=== PATIENT | female | born 1995 | race Caucasian/White ===

== ENCOUNTER 2018-07-08 20:51 | Emergency (ER) | payer OTHER ==
[2018-07-08 21:04] VITALS: BP 128/81; PULSE 100; TEMP 98.2; BMI 28.7
--- NOTE | 2018-07-08 22:56 | PDOC ---
History of Present Illness - General Chief Complaint: Vaginal Bleeding Stated Complaint: 12 WEEKS ,BLEEDING Time Seen by Provider: 07/08/18 22:56 - History of Present Illness Initial Comments: 07/08/18 23:14 Ms. Galdamez is a 22 yo female at 12weeks and 2 days who presents for evaluation of bleeding in . Patient reports she was evaluated yesterday at [facility] w/ transabdominal sonogram which was completely normal however started to have vaginal bleeding following this. Patient says she saturated 1 liner and has had moderate bleeding today. Denies any other associated symptoms. The patient denies chest pain, shortness of breath, headache and dizziness. Denies fever, chills, nausea, vomit, diarrhea and constipation. Denies dysuria, frequency, urgency and hematuria. Past History - Past Medical History Allergies/Adverse Reactions: Allergies Allergy/AdvReac Type Severity Reaction Status Date / Time No Known Allergies Allergy Verified 07/08/18 21:00 Home Medications: Ambulatory Orders Nitrofurantoin Monohyd/M-Cryst [Macrobid -] 100 mg PO BID #14 capsule 07/09/18 COPD: No - Suicide/Smoking/Psychosocial Hx Smoking History: Never smoked Review of Systems - Review of Systems Comments:: 07/08/18 23:18 GENERAL/CONSTITUTIONAL: No fever or chills. No weakness. HEAD, EYES, EARS, NOSE AND THROAT: No change in vision. No ear pain or discharge. No sore throat. CARDIOVASCULAR: No chest pain or shortness of breath RESPIRATORY: No cough, wheezing, or hemoptysis. GASTROINTESTINAL: No nausea, vomiting, diarrhea or constipation. GENITOURINARY: No dysuria, frequency, or change in urination. MUSCULOSKELETAL: No joint or muscle swelling or pain. No neck or back pain. SKIN: No rash NEUROLOGIC: No headache, vertigo, loss of consciousness, or change in strength/ sensation. ENDOCRINE: No increased thirst. No abnormal weight change HEMATOLOGIC/LYMPHATIC: No anemia, easy bleeding, or history of blood clots. ALLERGIC/IMMUNOLOGIC: No hives or skin allergy. VAGINAL: Bleeding as described. *Physical Exam - Vital Signs Last Vital Signs Temp Pulse Resp BP Pulse Ox 98.2 F 100 H 20 128/81 100 07/08/18 21:01 07/08/18 21:01 07/08/18 21:01 07/08/18 21:01 07/08/18 21:01 - Physical Exam Comments: 07/08/18 23:19 GENERAL: Awake, alert, and fully oriented, in no acute distress HEAD: No signs of trauma, normocephalic, atraumatic EYES: PERRLA, EOMI, sclera anicteric, conjunctiva clear ENT: Auricles normal inspection, hearing grossly normal, nares patent, oropharynx clear without exudates. Moist mucosa NECK: Normal ROM, supple, no lymphadenopathy, JVD, or masses LUNGS: No distress, speaks full sentences, clear to auscultation bilaterally HEART: Regular rate and rhythm, normal S1 and S2, no murmurs, rubs or gallops, peripheral pulses normal and equal bilaterally. ABDOMEN: Soft, nontender, normoactive bowel sounds. No guarding, no rebound. No masses EXTREMITIES: Normal inspection, Normal range of motion, no edema. No clubbing or cyanosis. NEUROLOGICAL: Cranial nerves II through XII grossly intact. Normal speech, normal gait, no focal sensorimotor deficits SKIN: Warm, Dry, normal turgor, no rashes or lesions noted. VAGINAL: Os closed. Dried blood notable only. No CMT, no TTP. ED Treatment Course - LABORATORY CBC & Chemistry Diagram: 07/08/18 23:10 Medical Decision Making - Medical Decision Making 07/08/18 23:33 Ms. Galdamez is a 22 yo female w/ pmh as described who presents for evaluation of painless vaginal bleeding. Patient evaluated with labs as below as well as bedside sonogram. FHR 178 w/ good movement. Vaginal exam non- concerning. Patient H/H stable and blood type Rh+ necessitating no rhogam. Patient safe for outpatient f/u Tuesday. Discharging to home. Laboratory Results - last 24 hr 07/08/18 07/08/18 07/08/18 23:10 23:10 23:10 WBC 7.2 RBC 4.37 Hgb 13.5 Hct 39.6 MCV 90.6 MCH 30.9 MCHC 34.1 RDW 13.1 Plt Count 174 MPV 8.7 Absolute Neuts (auto) 4.7 Neutrophils % 65.9 Lymphocytes % 26.4 Monocytes % 6.2 Eosinophils % 1.2 Basophils % 0.3 Nucleated RBC % 0 Beta HCG, Quant 34216.5 Urine Color Urine Appearance Urine pH Ur Specific [place] Urine Protein Urine Glucose (UA) Urine Ketones Urine Blood Urine Nitrite Urine Bilirubin Urine Urobilinogen Ur Leukocyte Esterase Urine WBC (Auto) Urine RBC (Auto) Urine Casts (Auto) U Epithel Cells (Auto) Urine Bacteria (Auto) Blood Type B POSITIVE Antibody Screen Negative 07/08/18 23:20 WBC RBC Hgb Hct MCV MCH MCHC RDW Plt Count MPV Absolute Neuts (auto) Neutrophils % Lymphocytes % Monocytes % Eosinophils % Basophils % Nucleated RBC % Beta HCG, Quant Urine Color Yellow Urine Appearance Clear Urine pH 6.5 Ur Specific [place] 1.009 L Urine Protein Negative Urine Glucose (UA) Negative Urine Ketones Negative Urine Blood 1+ H Urine Nitrite Negative Urine Bilirubin Negative Urine Urobilinogen 0.2 Ur Leukocyte Esterase Negative Urine WBC (Auto) 1 Urine RBC (Auto) 2 Urine Casts (Auto) 0 U Epithel Cells (Auto) 1.6 Urine Bacteria (Auto) 929.9 Blood Type Antibody Screen *DC/Admit/Observation/Transfer Diagnosis at time of Disposition: Threatened UTI (urinary tract infection) Qualifiers: Urinary tract infection type: site unspecified Hematuria presence: without hematuria Qualified Code(s): N39.0 - Urinary tract infection, site not specified - Discharge Dispostion Disposition: HOME - Prescriptions Prescriptions: Nitrofurantoin Monohyd/M-Cryst [Macrobid -] 100 mg PO BID #14 capsule - Referrals Referrals: ON STAFF,NOT [Primary Care Provider] - - Patient Instructions Printed Discharge Instructions: DI for Vaginal Bleeding During , DI for Urinary Tract Infection (UTI) Additional Instructions: You were evaluated today in the ER for your bleeding. We performed a bedside US which showed good movement and a heart rate of 178. Labs were normal. Your blood type is B positive. Your exam was normal. Please follow-up on Tuesday with [facility] for further evaluation. Return to ER if any pain, further bleeding, or other concerning symptoms. - Post Discharge Activity
[2018-07-08 23:19] LABS: BASO % 0.3 % (0-2.0); EOS % 1.2 % (0-4.5); HEMATOCRIT 39.6 % (32.4-45.2); HEMOGLOBIN 13.5 GM/dL (10.7-15.3); LYMPH % 26.4 % (8-40); MCH 30.9 pg (25.7-33.7); MCHC 34.1 g/dl (32.0-36.0); MEAN CELL VOLUME 90.6 fl (80-96); MEAN PLT VOLUME 8.7 fl (7.5-11.1); MONO % 6.2 % (3.8-10.2); NEUT % 65.9 % (42.8-82.8); PLATELET COUNT 174 K/MM3 (134-434); RBC 4.37 M/mm3 (3.60-5.2); RDW 13.1 % (11.6-15.6); WHITE BLOOD COUNT 7.2 K/mm3 (4.0-10.0)
[2018-07-08 23:31] LABS: EPI CELLS 1.6 /HPF (0-5); PH,URINE 6.5 (5.0-8.0); URINE APPEARANCE CLEAR; URINE BACTERIA 929.9 /hpf (NEGATIVE); URINE BILIRUBIN NEGATIVE (NEGATIVE); URINE CASTS 0 /hpf (0-8); URINE COLOR YELLOW; URINE GLUCOSE (UA) NEGATIVE (NEGATIVE); URINE KETONE NEGATIVE (NEGATIVE); URINE LEUK ESTERASE NEGATIVE (NEGATIVE); URINE NITRITE NEGATIVE (NEGATIVE); URINE PROTEIN NEGATIVE (NEGATIVE); URINE RBC 2 /hpf (0-4); URINE UROBILINOGEN 0.2 mg/dL (0.2-1.0); URINE WBC 1 /hpf (0-5)
--- NOTE | 2018-07-08 23:31 | PDOC ---
Attending Attestation - HPI HPI: 07/09/18 00:14 The patient is a 22 year old 12 week female () , with no significant PMH, presents to the emergency department for vaginal bleeding that began 2 days ago. The patient states she has been moderately bleeding today with one saturated linear. She reports going to her OBGYN yesterday for an transabdominal sonogram which was normal. Patient denies any odor or trauma. The patient denies chest pain, shortness of breath, headache and dizziness.Denies fever, chills, nausea, vomit, diarrhea and constipation.Denies dysuria, frequency, urgency and hematuria. Allergies: NKDA Past surgical history: None reported Social history: None reported PCP: None reported Documentation prepared by Zulema Hsieh, acting as dental assistant medical assistant for Kirsten Guillen MD. - Physicial Exam PE: 07/09/18 00:15 GENERAL: The patient is in no acute distress. HEAD: Normal with no signs of trauma. LUNGS: Breath sounds equal, clear to auscultation bilaterally. No wheezes, and no crackles. HEART:Regular rate and rhythm, normal S1 and S2 without murmur, rub or gallop. ABDOMEN: Soft, nontender, normoactive bowel sounds. No guarding, no rebound. No masses palpable. GENITOURINARY:+os closed. +Minimal bleeding in vault. EXTREMITIES: Normal range of motion, no edema. No clubbing or cyanosis. No erythema, or tenderness. NEUROLOGICAL: Cranial nerves II through XII grossly intact. Normal speech. No focal neurological deficits. SKIN: Warm, Dry, normal turgor, no rashes or lesions noted. Documentation prepared by Zulema Hsieh, acting as dental assistant medical assistant for Kirsten Guillen MD. <Zulema Hsieh - Last Filed: 07/09/18 00:14> - Resident Resident Name: Nilson Acosta - ED Attending Attestation I have performed the following: I have examined & evaluated the patient, The case was reviewed & discussed with the resident, I agree w/resident's findings & plan - Medical Decision Making 07/08/18 23:31 Pt's Hb/HCT normal 07/09/18 00:43 Pt with threatened ab and UTI. She will be given a dose of macrobid here and she will go home with a 7 day supply to go home with. <Kirsten Guillen - Last Filed: 07/09/18 00:43>
[2018-07-09] MEDS ORDERED: NITROFURANTOIN MACROCRYSTAL 50 MG CAPSULE (FP) PO SCH (00:45)
[2018-07-09] MEDS ORDERED: NITROFURANTOIN MACROCRYSTAL 50 MG CAPSULE (FP) ONE (01:09)
== END 2018-07-09 01:06 | disposition home or self-care (01) ==
LOC: JER 20:51
DX: O26.891 Other specified pregnancy related conditions, first trimester (principal); O20.0 Threatened abortion; O23.31 Infections of other parts of urinary tract in pregnancy, first trimester; Z3A.12 12 weeks gestation of pregnancy
CPT/HCPCS: 36415; 81003; 84702; 85025; 86850; 86900; 86901; 87086; 87186; 99282-25

== ENCOUNTER 2019-01-18 18:58 | Inpatient (IN) | payer OTHER ==
[2019-01-18] MEDS ORDERED: PROMETHAZINE HCL 25 MG/1 ML VIAL IVPB ONE (21:20)
[2019-01-18] MEDS ORDERED: BUTORPHANOL TARTRATE 1 MG/ML VIAL IVPB PRN (21:20)
[2019-01-18] MEDS ORDERED: BUTORPHANOL TARTRATE 1 MG/ML VIAL IVPUSH PRN (21:25)
--- NOTE | 2019-01-18 21:27 | HP ---
Past Medical History - Primary Care Physician PCP:: Dimas Mead - Admission Chief Complaint: 40 weeks,labor History of Present Illness: 23 yo f 40 weeks, in labor , no rom , no bleeding, no fever , cx 2 cm 80 vx -2 mi, fhr cat 1, irregular contraction GBS negative History Source: Patient Limitations to Obtaining History: No Limitations - Past Medical History ...: 2 ...Para: 0 ...Term: 0 ...: 0 ...Spon : 0 ...Induced : 1 ...LMP: 04/13/18 ... Weeks Gestation by Dates: 40.0 ...EDC by Dates: 01/18/19 - Past Surgical History Hx Myomectomy: No Hx Transabdominal Cerclage: No - Smoking History Smoking history: Never smoked - Alcohol/Substance Use Hx Alcohol Use: No History of Substance Use: reports: None - Social History Usual Living Arrangement: Yes: With Spouse History of Recent Travel: No Home Medications - Allergies Allergies/Adverse Reactions: Allergies Allergy/AdvReac Type Severity Reaction Status Date / Time No Known Allergies Allergy Verified 01/18/19 19:16 - Home Medications Home Medications: Ambulatory Orders Ferrous Sulfate [Feosol] 325 mg PO DAILY 01/18/19 Vit No.129/Iron/Folic [ One Daily Tablet] 1 each PO DAILY 01/18 Review of Systems - Review of Systems Constitutional: reports: No Symptoms Eyes: reports: No Symptoms HENT: reports: No Symptoms Neck: reports: No Symptoms Cardiovascular: reports: No Symptoms Respiratory: reports: No Symptoms Gastrointestinal: reports: No Symptoms Genitourinary: reports: No Symptoms Breasts: reports: No Symptoms Reported Musculoskeletal: reports: No Symptoms Integumentary: reports: No Symptoms Neurological: reports: No Symptoms Endocrine: reports: No Symptoms Hematology/Lymphatic: reports: No Symptoms Psychiatric: reports: No Symptoms Physical Exam - Maternity Vital Signs: Vital Signs Temperature 98.4 F 01/18/19 19:19 Pulse Rate 103 H 01/18/19 19:19 Respiratory Rate 20 01/18/19 19:19 Blood Pressure 129/85 01/18/19 19:19 O2 Sat by Pulse Oximetry (%) Constitutional: Yes: Well Nourished, No Distress, Calm Eyes: Yes: WNL, Conjunctiva Clear, EOM Intact HENT: Yes: WNL, Atraumatic, Normocephalic Neck: Yes: WNL, Supple, Trachea Midline Cardiovascular: Yes: WNL, Regular Rate and Rhythm Breast(s): Yes: WNL - Abdominal Exam/OB Fundal Height: 40 Number of Fetuses: Single Presentation: Vertex Contractions: Yes Regularity: Irregular Intensity: Mod/Strong Monitor Mode: External Heart Rate Location: [facility] Category: I Accelerations: Uniform Decelerations: None - Vaginal Exam/OB Speculum Exam: No Dilatation (cm): 2 cm Effacement (%): 80 Amniotic Membrane Status: Intact Presentation: Vertex/Position Station: -2 - Physical Exam Musculoskeletal: Yes: WNL Extremities: Yes: WNL Edema: Yes Edema: LLE: Trace, RLE: Trace Integumentary: Yes: WNL Deep Tendon Reflex Grade: Normal +2 ...Motor Strength: WNL Psychiatric: Yes: WNL Hemorrhage Risk Assessment - Risk Factors Medium Risk Factors: Yes: None High Risk Factors: Yes: None Risk Score: 1 Risk Level: Medium Risk Problem List - Problems (1) Postmaturity , 40-42 weeks gestation Code(s): O48.0 - POST-TERM (2) Labor established Code(s): [id number] - Assessment/Plan admit fhm observation , if contraction not regular may benefit from lo dose pitocin , risks and benefit discussed
[2019-01-18 21:29] VITALS: BMI 31.4
[2019-01-18] MEDS: DEXTROSE 5%-LACTATED RINGERS 1,000 ML IV SCH (22:30)
[2019-01-18 22:52] LABS: BASO % 0.1 % (0-2.0); EOS % 0.3 % (0-4.5); HEMATOCRIT 43.5 % (32.4-45.2); HEMOGLOBIN 14.5 GM/dL (10.7-15.3); MCH 31.4 pg (25.7-33.7); MCHC 33.4 g/dl (32.0-36.0); MEAN CELL VOLUME 94.2 fl (80-96); MONO % 4.6 % (3.8-10.2); PLATELET COUNT 156 K/MM3 (134-434); RBC 4.62 M/mm3 (3.60-5.2); RDW 13.5 % (11.6-15.6); WHITE BLOOD COUNT 12.4 K/mm3 (4.0-10.0)
[2019-01-18 23:05] LABS: INR 0.9 (0.83-1.09); PROTHROMBIN TIME (PATIENT) 10.6 SEC (9.7-13.0)
[2019-01-18 23:07] LABS: ACTIVATED PTT 28.7 SECONDS (25.2-36.5)
[2019-01-18 23:18] LABS: BLOOD UREA NITROGEN 9.1 mg/dL (7-18); CALCIUM 9.1 mg/dL (8.5-10.1); CREATININE 0.6 mg/dL (0.55-1.3); POTASSIUM 3.7 mmol/L (3.5-5.1)
[2019-01-19] MEDS ORDERED: PROMETHAZINE HCL 25 MG/1 ML VIAL ONE (02:46)
[2019-01-19] MEDS ORDERED: OXYTOCIN 30 UNITS in 0.9% NS 30 UNIT/500 ML INFUS.BAG IVPB ONE (02:46)
[2019-01-19] MEDS ORDERED: BUTORPHANOL TARTRATE 1 MG/ML VIAL ONE ×2 (02:46)
[2019-01-19] MEDS: OXYTOCIN 30 UNITS in 0.9% NS 30 UNIT/500 ML INFUS.BAG IVPB SCH (03:20)
--- NOTE | 2019-01-19 04:46 | PN ---
Progress Note (short form) - Note Progress Note: cx 4 cm 80 vx -2, mi, fhr cat 1, contraction q 3 min Problem List - Problems (1) Postmaturity , 40-42 weeks gestation Code(s): O48.0 - POST-TERM (2) Labor established Code(s): [id number] -
[2019-01-19] MEDS ORDERED: FENTANYL/BUPIVACAINE/NS/PF - PCEA - 50 ML DISP.SYRIN EP ONE ×2 (07:13→12:03)
[2019-01-19] MEDS ORDERED: NALOXONE HCL 0.4 MG/ML VIAL IVPUSH PRN (08:02)
[2019-01-19] MEDS ORDERED: FENTANYL/BUPIVACAINE/NS/PF - PCEA - 50 ML DISP.SYRIN EP SCH ×2 (08:15→09:10)
[2019-01-19] MEDS ORDERED: OXYTOCIN 20 UNITS in 0.9% NS 20 UNIT/1,000 ML INFUS.BAG IV ONE ×2 (10:54→16:21)
[2019-01-19] MEDS ORDERED: LIDOCAINE HCL 1% PRESERVATIVE FREE - 30ML VIAL ONE (13:59)
[2019-01-19] MEDS ORDERED: OXYTOCIN 10 UNITS/ML VIAL ONE (14:24)
[2019-01-19] MEDS ORDERED: METHYLERGONOVINE MALEATE 0.2 MG/1 ML AMP IM ONE (14:30)
[2019-01-19] MEDS: OXYTOCIN 20 UNITS in 0.9% NS 20 UNIT/1,000 ML INFUS.BAG IV SCH (14:30)
[2019-01-19] MEDS ORDERED: METHYLERGONOVINE MALEATE 0.2 MG/1 ML AMP IM PRN (15:39)
[2019-01-19] MEDS ORDERED: WITCH HAZEL 50% (TUCKS) 40 PAD/JAR PAD TP PRN (15:39)
[2019-01-19] MEDS ORDERED: BENZOCAINE 20% 57 GM BOTTLE TP PRN (15:39)
[2019-01-19] MEDS ORDERED: BISACODYL 10 MG SUPP.RECT RC PRN (15:39)
[2019-01-19] MEDS ORDERED: BENZOCAINE 28 GM HEMORRHOIDAL OINTMENT TP PRN (15:39)
[2019-01-19] MEDS ORDERED: OXYTOCIN 10 UNITS/ML VIAL IM ONE (15:40)
[2019-01-19] MEDS ORDERED: D5W-LR W/ 20 UNITS OXYTOCIN 20 UNIT/1,000 ML INFUS.BAG IV SCH (15:45)
[2019-01-19] MEDS: IBUPROFEN 600 MG TABLET (FP) PO PRN ×2 (16:40→21:32)
[2019-01-19] MEDS ORDERED: IBUPROFEN 600 MG TABLET (FP) PO ONE (16:40)
[2019-01-19] MEDS ORDERED: ACETAMINOPHEN 325 MG TABLET (FP) ONE (16:40)
[2019-01-19] MEDS: ACETAMINOPHEN 325 MG TABLET (FP) PO PRN ×2 (16:43→21:31)
--- NOTE | 2019-01-19 17:27 | PN ---
Progress Note (short form) - Note Progress Note: 1045 am arom , light mec . stain AF , fhr cat 1, cx 9cm . 100 vx op -2 LT side o2 , observation Problem List - Problems (1) Postmaturity , 40-42 weeks gestation Code(s): O48.0 - POST-TERM (2) Labor established Code(s): [id number] -
--- NOTE | 2019-01-19 17:28 | PN ---
Progress Note (short form) - Note Progress Note: 2pm cx full vx 3+, fhr cat 1, wants to push Problem List - Problems (1) Postmaturity , 40-42 weeks gestation Code(s): O48.0 - POST-TERM (2) Labor established Code(s): [id number] -
--- NOTE | 2019-01-19 17:33 | PN ---
Delivery - Delivery Vaginal Delivery: Spontaneous (cx full 100 vx , head on perinium ,episiotomy done , head delivered , nasopharynx suctioned , ant. and post . shoulder delivered with no difficulty , live baby girl apgat 12/18 . placenta complete, episiotomy repaired with 2 chromic in 3 layes, rectal exam normal . ebl 500 cc , no complication) Type of Anesthesia: Local, Epidural Episiotomy/Laceration: Midline EBL (cc): 500 Delivery, Single - Stages of Labor Date 1st Stage Initiatied: 01/19/19 Time 1st Stage Initiated: 01:00 Date 2nd Stage Initiated: 01/19/19 Time 2nd Stage Initiated: 10:45 Date of Delivery: 01/19/19 Time of Delivery: 14:18 Time Placenta Delivered: 14:20 - Condition of Room Service Food Service Attendant/Toolsmith Present: No Gender: Female Weight: 7 lb 13 oz Position: OP Total Hours ROM (Hrs/Mins): 3 hours and 23 minutes - 1 Minute Total Score: 9 5 Minutes Total Score: 9 - [place] Feeding Plan Initial Plan: Exclusive throughout hospitalization
[2019-01-19] MEDS: FERROUS SO4 325 MG TABLET (FP) PO SCH (21:30)
[2019-01-20] MEDS: IBUPROFEN 600 MG TABLET (FP) PO PRN ×4 (05:51→21:17)
[2019-01-20] MEDS: ACETAMINOPHEN 325 MG TABLET (FP) PO PRN ×4 (05:51→21:18)
--- NOTE | 2019-01-20 08:13 | PN ---
Post Progress Note - Subjective Subjective: Voiding, lochia decreased, tolerating PO, ambulating and reports mild lightheadedness, breast feeding Post Day: 1 Type of Delivery: Vital Signs: Vital Signs Temperature 98 F 01/20/19 06:00 Pulse Rate 107 H 01/20/19 06:00 Respiratory Rate 18 01/20/19 06:00 Blood Pressure 107/64 01/20/19 06:00 O2 Sat by Pulse Oximetry (%) 100 01/19/19 15:30 Breast Exam: Yes: Other (deferred) Uterus: Yes: Fundus Firm Abdomen/GI: Yes: Abdomen soft Lochia, amount: Moderate Extremities: Yes: Calves non-tender Activity: Ambulating - Labs Labs: CBC WBC 12.4 K/mm3 (4.0-10.0) H 01/18/19 22:30 RBC 4.62 M/mm3 (3.60-5.2) 01/18/19 22:30 Hgb 14.5 GM/dL (10.7-15.3) 01/18/19 22:30 Hct 43.5 % (32.4-45.2) 01/18/19 22:30 MCV 94.2 fl (80-96) 01/18/19 22:30 MCH 31.4 pg (25.7-33.7) 01/18/19 22:30 MCHC 33.4 g/dl (32.0-36.0) 01/18/19 22:30 RDW 13.5 % (11.6-15.6) 01/18/19 22:30 Plt Count 156 K/MM3 (134-434) 01/18/19 22:30 MPV 11.0 fl (7.5-11.1) D 01/18/19 22:30 Absolute Neuts (auto) 10.7 K/mm3 (1.5-8.0) H 01/18/19 22:30 Neutrophils % 86.0 % (42.8-82.8) H D 01/18/19 22:30 Lymphocytes % 9.0 % (8-40) D 01/18/19 22:30 Monocytes % 4.6 % (3.8-10.2) 01/18/19 22:30 Eosinophils % 0.3 % (0-4.5) 01/18/19 22:30 Basophils % 0.1 % (0-2.0) 01/18/19 22:30 Nucleated RBC % 0 % (0-0) 01/18/19 22:30 Assessment/Plan PPD # 1 mild mild light headedness following PPH -AM CBC -Ambulating with assistance -COntinue inpatient management
[2019-01-20 09:52] LABS: BASO % 0.1 % (0-2.0); EOS % 0.3 % (0-4.5); HEMATOCRIT 27.2 % (32.4-45.2); HEMOGLOBIN 9.2 GM/dL (10.7-15.3); LYMPH % 12.1 % (8-40); MCH 31.8 pg (25.7-33.7); MCHC 33.7 g/dl (32.0-36.0); MEAN CELL VOLUME 94.3 fl (80-96); MEAN PLT VOLUME 9.3 fl (7.5-11.1); MONO % 4.1 % (3.8-10.2); NEUT % 83.4 % (42.8-82.8); PLATELET COUNT 143 K/MM3 (134-434); RBC 2.88 M/mm3 (3.60-5.2); RDW 13.5 % (11.6-15.6); WHITE BLOOD COUNT 12.1 K/mm3 (4.0-10.0)
[2019-01-20] MEDS: FERROUS SO4 325 MG TABLET (FP) PO SCH ×2 (09:58→21:19)
[2019-01-20] MEDS: PRENATAL VITAMINS W/ FOLIC ACID TABLET (FP) PO SCH (09:58)
[2019-01-20] MEDS: OXYTOCIN 30 UNITS in 0.9% NS 30 UNIT/500 ML INFUS.BAG IVPB SCH (20:55)
[2019-01-20] MEDS: DEXTROSE 5%-LACTATED RINGERS 1,000 ML IV SCH ×2 (20:55→22:42)
[2019-01-20] MEDS: OXYTOCIN 20 UNITS in 0.9% NS 20 UNIT/1,000 ML INFUS.BAG IV SCH (20:56)
[2019-01-20] MEDS ORDERED: SENNOSIDES/DOCUSATE COMBO (SENNA PLUS) TABLET (UD) PO PRN (22:00)
[2019-01-21] MEDS: ACETAMINOPHEN 325 MG TABLET (FP) PO PRN ×2 (03:26→09:11)
[2019-01-21] MEDS: IBUPROFEN 600 MG TABLET (FP) PO PRN ×2 (03:26→09:12)
--- NOTE | 2019-01-21 08:04 | DS ---
Physical Examination Vital Signs: Vital Signs Temperature 98.2 F 01/20/19 22:00 Pulse Rate 109 H 01/20/19 22:00 Respiratory Rate 18 01/20/19 22:00 Blood Pressure 115/71 01/20/19 22:00 O2 Sat by Pulse Oximetry (%) 100 01/19/19 15:30 Findings/Remarks: Ambulating, breast feeding, lochia decreased, passing flatus, tolerating PO, voiding Constitutional: Yes: Calm HENT: Yes: Atraumatic, Normocephalic Neck: Yes: Supple Cardiovascular: Yes: Regular Rate and Rhythm Gastrointestinal: Yes: Soft (fundus is firm) ...Rectal Exam: Yes: Deferred Breast(s): Yes: Other (deferred) Extremities: Yes: WNL Edema: Yes Edema: LLE: Trace, RLE: Trace Integumentary: Yes: WNL Neurological: Yes: Alert, Oriented ...Motor Strength: WNL Psychiatric: Yes: Alert, Oriented Labs: CBC, BMP 01/20/19 09:34 01/18/19 22:30 Discharge Summary Problems reviewed: Yes Reason For Visit: LABOR Current Active Problems Labor established (Acute) Postmaturity , 40-42 weeks gestation (Acute) Procedures: Principal: vaginal delivery Hospital Course: Vaginal delivery followed by uncomplicated recovery Condition: Stable - Instructions Diet, Activity, Other Instructions: Return to regular activity and diet as tolerated. call MD with any concerns. Referrals: Dimas Mead MD [Staff Physician] - Disposition: HOME - Home Medications Comprehensive Discharge Medication List: Ambulatory Orders Ferrous Sulfate [Feosol] 325 mg PO DAILY 01/18/19 Vit No.129/Iron/Folic [ One Daily Tablet] 1 each PO DAILY 01/18
[2019-01-21] MEDS: FERROUS SO4 325 MG TABLET (FP) PO SCH (09:12)
[2019-01-21] MEDS: PRENATAL VITAMINS W/ FOLIC ACID TABLET (FP) PO SCH (09:12)
[2019-01-21 11:17] VITALS: BP 108/70; PULSE 104; TEMP 98.3
== END 2019-01-21 12:20 | disposition home or self-care (01) | DRG 560 ==
LOC: JDEL 18:58 → JLDR 21:10 → J3W 01-19 16:33
PROVIDERS: ADMIT Obstetrics & Gynecology; ATTEND Obstetrics & Gynecology
PROC: 10E0XZZ Delivery of Products of Conception, External Approach (ICD-10-PCS; principal; 2019-01-19)
PROC: 0W8NXZZ Division of Female Perineum, External Approach (ICD-10-PCS; 2019-01-19)
DX: O48.0 Post-term pregnancy (principal); Z3A.40 40 weeks gestation of pregnancy; Z37.0 Single live birth
CPT/HCPCS: 36415; 36600; 59409; 80048; 82803; 85025; 85610; 85730; 86593; 86850; 86900; 86901

== ENCOUNTER 2019-06-09 00:17 | Emergency (ER) | payer OTHER ==
[2019-06-09 00:33] VITALS: BP 128/64; PULSE 82; TEMP 97.6; BMI 31.7
[2019-06-09] MEDS ORDERED: LIDOCAINE HCL 1%, 10 MG/ML (50 mL VIAL) SQ ONE (00:38)
[2019-06-09] MEDS ORDERED: LIDOCAINE HCL 1%, 10 MG/ML (20ML VIAL) ONE (00:40)
--- NOTE | 2019-06-09 01:02 | PDOC ---
Attending Attestation - Resident Resident Name: Odette Larry - ED Attending Attestation I have performed the following: I have examined & evaluated the patient, The case was reviewed & discussed with the resident, I agree w/resident's findings & plan - HPI HPI: 06/09/19 19:43 Pt's wedding ring is stuck on her 4th finger (right hand- Fijian style) - Physicial Exam PE: 06/09/19 19:44 Agree with resident exam - Medical Decision Making 06/09/19 19:44 Ring removed intact after a digital block. Pt tolerated procedure well. Ring was stuck x 3 hrs. Finger has good cap refill and neuro intact; strength intact. Pt has small cuts on the finger. Pt has a normal XR and FROM
--- NOTE | 2019-06-09 01:07 | PDOC ---
History of Present Illness - General Chief Complaint: Edema Stated Complaint: SWELLING, FINGER Time Seen by Provider: 06/09/19 00:59 History Source: Patient Exam Limitations: No Limitations - History of Present Illness Initial Comments: 06/09/19 01:02 23 YOF who p/w wedding ring stuck on right 4th finger (ring finger) since 10:30 pm mack. She notes having given to a baby months ago and had taken her wedding ring off during the because she was swollen and did not want it to get stuck. Tonight was the first time she put it back on, and immediately she was unable to get it off. She and her tried everything they could think of for 2 hours at home before coming in to the ED, including wrapping it, pulling, lubricant, etc. She still has intact sensation to the fingertip and is able to range the finger. Past History - Past Medical History Allergies/Adverse Reactions: Allergies Allergy/AdvReac Type Severity Reaction Status Date / Time No Known Allergies Allergy Verified 06/09/19 00:31 Home Medications: Ambulatory Orders Ferrous Sulfate [Feosol] 325 mg PO DAILY 01/18/19 Vit No.129/Iron/Folic [ One Daily Tablet] 1 each PO DAILY 01/18 Acetaminophen [Tylenol] 325 mg PO Q4H PRN #20 capsule 01/21/19 Ibuprofen 600 mg PO Q6H PRN #20 tablet 01/21/19 Asthma: No Cancer: No Cardiac Disorders: No COPD: No Diabetes: No HTN: No Seizures: No Thyroid Disease: No - Immunization History Immunization Up to Date: Yes - Psycho Social/Smoking Cessation Hx Smoking History: Never smoked Have you smoked in the past 12 months: No Information on smoking cessation initiated: No Hx Alcohol Use: No Drug/Substance Use Hx: No Hx Substance Use Treatment: No Review of Systems - Review of Systems Able to Perform ROS?: Yes Comments:: 06/09/19 01:07 GEN: no fever, chills, malaise, or generalized weakness HEENT: no ear pain, congestion, sore throat, vision change, or eye pain CV: no chest pain, palpitations, lightheadedness, syncope, or edema RESP: no SOB, wheezing, or cough GI: no abdominal pain, nausea, vomiting, diarrhea, constipation, or rectal bleed : no dysuria, hematuria, or discharge MSK: right ring finger pain and swelling, no muscle weakness or pain, no joint swelling or pain NEURO: no headache, vertigo, numbness, tingling, or focal weakness PSYCH: no SI, HI, or behavior change SKIN: no jaundice, rash, lesions, or unexplained bruises ROS otherwise negative except as noted in HPI *Physical Exam - Vital Signs Last Vital Signs Temp Pulse Resp BP Pulse Ox 97.6 F 82 20 128/64 100 06/09/19 00:06/09/19 00:06/09/19 00:06/09/19 00:06/09/19 00:31 - Physical Exam 06/09/19 01:13 GENERAL: well-appearing, A/Ox4, no distress, answers questions appropriately HEENT: PERRLA, EOMI, moist mucous membranes NECK/BACK: no midline ttp, no spinal stepoff or deformity, no hematoma, full ROM , neck supple CARDIOVASCULAR: strong peripheral pulses, capillary refill <2 seconds, extremities wwp LUNGS/RESPIRATORY: no respiratory distress, CTAB GI/ABDOMEN: symmetric [id number], normoactive BS, soft, no ttp, no midline pulsatile masses LYMPH: no lymphadenopathy EXTREMITIES: no muscle atrophy, no acute deformity DERM/SKIN: superficial abrasions and superficial skin sloughing underlying thick gold ring stuck around base of proximal phalanx on right ring finger with significant distal swelling, skin is otherwise warm and dry, no pallor, no jaundice, no rash, no bruising, no skin breakdown, no cuts, no lesions NEUROLOGICAL: GCS 15, CN II-XII grossly intact, 5/5 strength proximally and distally, no facial droop, right ring fingertip sensation intact and motor intact ED Treatment Course - RADIOLOGY Radiology Studies Ordered: Category Date Time Status FINGER(S) RIGHT [RAD] Stat Radiology 06/09/19 00:59 Ordered Medical Decision Making - Medical Decision Making 06/09/19 01:18 Patient presents with right ring finger pain, swelling, and slight skin breakdown underlying stuck wedding ring. Initial Vital Signs Temp Pulse Resp BP Pulse Ox 97.6 F 82 20 128/64 100 06/09/19 00:31 06/09/19 00:06/09/19 00:06/09/19 00:06/09/19 00:06/09/19 01:33 The patient refused ring cutter, stated it is her wedding ring. Patient in moderate pain and digital block is performed with 1% lidocaine without epinephrine. We were able to remove the ring with lubricant gel, elastic band compression, ice water, and gentle rocking back/forth. Small abrasions and superficial skin sloughing subsequently, bacitracin applied. The patient states she does have sensation to the finger tip, able to flex/ extend and range the finger fully. Good capillary refill throughout finger subsequently. X-ray finger shows no acute bony abnormality. This patient has gotten significant relief of symptoms while in the ED. On last reassessment, pain is reasonably controlled, and exam is benign. Workup is not concerning for emergency-level pathology at this time. This patient is appropriate for discharge with close outpatient follow up. She will take Tylenol and/or Motrin for pain, and use antibiotic ointment on abrasions for the next 24 hrs. They are comfortable with this plan and will follow up with PCP in 2 days. Specific return precautions are discussed and they will come back to the ER if necessary. Discharge - Discharge Information Problems reviewed: Yes Clinical Impression/Diagnosis: Ring or other jewelry causing external constriction, initial encounter Condition: Stable Disposition: HOME - Admission No - Follow up/Referral Referrals: [facility] [place] [facility] [place] [Provider Group] - Patient Discharge Instructions Additional Instructions: You were seen in the ER for a stuck wedding ring on your finger. We were able to use ice, an elastic band wrap, and lubricant gel to remove the ring. We got an x-ray after removing it, and this shows swelling but no fracture or dislocation. Your finger is going to be swollen and painful for the next few days, and you will have bruising. Use antibiotic ointment on the abrasions for the next 24 hours. Follow up with your primary care provider in 2 days. Come back to the ER if you have any new or worsening symptoms, especially inability to move or feel the finger, or any signs of infection like abscess formation or pus drainage. - Post Discharge Activity
== END 2019-06-09 01:53 | disposition home or self-care (01) ==
LOC: JER 00:17
PROC: 3E023BZ Introduction of Anesthetic Agent into Muscle, Percutaneous Approach (ICD-10-PCS; principal; 2019-06-09)
DX: S60.444A External constriction of right ring finger, initial encounter (principal); W49.04XA Ring or other jewelry causing external constriction, initial encounter; Y93.89 Activity, other specified; Y92.038 Other place in apartment as the place of occurrence of the external cause; Y99.8 Other external cause status
CPT/HCPCS: 73140-TC-RT-FY; 96372; 99283-25

== ENCOUNTER 2020-12-09 02:15 | Inpatient (IN) | payer OTHER ==
[2020-12-09] MEDS ORDERED: METHYLERGONOVINE MALEATE 0.2 MG/1 ML AMP IM ONE (03:30)
[2020-12-09] MEDS ORDERED: ELECTROLYTE-148 SOLN 1,000 ML IV SCH (07:30)
[2020-12-09 08:04] VITALS: BMI 32.8
[2020-12-09] MEDS ORDERED: PCA PUMP NR ONE (08:31)
[2020-12-09] MEDS ORDERED: FENTANYL/BUPIVACAINE/NS/PF - PCEA - 50 ML DISP.SYRIN EP ONE ×2 (08:32→14:39)
[2020-12-09] MEDS ORDERED: NALOXONE HCL 0.4 MG/ML VIAL IVPUSH PRN (08:37)
[2020-12-09] MEDS ORDERED: BUPIVACAINE HCL/PF 0.25% (2.5MG/ML) 10 ML VIAL ONE ×3 (08:40→14:44)
[2020-12-09] MEDS ORDERED: OXYTOCIN 30 UNITS in 0.9% NS 30 UNIT/500 ML INFUS.BAG IVPB SCH (08:45)
[2020-12-09 09:34] LABS: EOS % 0.1 % (0-4.5); HEMATOCRIT 39.4 % (32.4-45.2); HEMOGLOBIN 13.3 GM/dL (10.7-15.3); LYMPH % 8.6 % (8-40); MCH 31.4 pg (25.7-33.7); MCHC 33.8 g/dl (32.0-36.0); MEAN CELL VOLUME 92.7 fl (80-96); MEAN PLT VOLUME 9.7 fl (7.5-11.1); MONO % 2.6 % (3.8-10.2); NEUT % 88.7 % (42.8-82.8); PLATELET COUNT 122 10^3/uL (134-434); RBC 4.25 M/mm3 (3.60-5.2); RDW 13.6 % (11.6-15.6); WHITE BLOOD COUNT 8.7 K/mm3 (4.0-10.0)
[2020-12-09 09:40] LABS: INR 0.91 (0.83-1.09); PROTHROMBIN TIME (PATIENT) 11.2 SEC (9.7-13.0)
[2020-12-09 09:42] LABS: ACTIVATED PTT 27.9 SECONDS (25.2-36.5)
[2020-12-09 09:53] LABS: BLOOD UREA NITROGEN 6.9 mg/dL (7-18); CALCIUM 8.3 mg/dL (8.5-10.1)
[2020-12-09 09:57] LABS: CREATININE 0.6 mg/dL (0.55-1.3)
[2020-12-09] MEDS: FENTANYL/BUPIVACAINE/NS/PF - PCEA - 50 ML DISP.SYRIN EP SCH ×2 (10:30→14:45)
[2020-12-09] MEDS ORDERED: OXYTOCIN 30 UNITS in 0.9% NS 30 UNIT/500 ML INFUS.BAG IVPB ONE (10:41)
[2020-12-09] MEDS ORDERED: OXYTOCIN 20 UNITS in 0.9% NS 20 UNIT/1,000 ML INFUS.BAG IV ONE (14:56)
[2020-12-09] MEDS ORDERED: LIDOCAINE HCL 1% PRESERVATIVE FREE - 30ML VIAL ONE (14:56)
[2020-12-09 16:48] LABS: CORD BASE EXCESS -5.7 mmol/L (0-2); CORD HCO3 21.6 mmHg (20-29); CORD PCO2 48.9 mmHg (30-78); CORD pH 7.264 (7.14-7.44)
[2020-12-09 16:51] LABS: CORD BASE EXCESS -4.7 mmol/L (0-2); CORD HCO3 19.9 mmHg (20-29); CORD PCO2 36.2 mmHg (30-78); CORD pH 7.359 (7.14-7.44)
[2020-12-09] MEDS ORDERED: BENZOCAINE 28 GM HEMORRHOIDAL OINTMENT TP PRN (16:57)
[2020-12-09] MEDS ORDERED: BENZOCAINE 20% 57 GM BOTTLE TP PRN (16:57)
[2020-12-09] MEDS ORDERED: WITCH HAZEL 50% (TUCKS) 40 PAD/JAR PAD TP PRN (16:57)
[2020-12-09] MEDS ORDERED: METHYLERGONOVINE MALEATE 0.2 MG/1 ML AMP IM PRN (16:57)
[2020-12-09] MEDS ORDERED: ACETAMINOPHEN 325 MG TABLET (FP) PO PRN (16:57)
[2020-12-09] MEDS ORDERED: BISACODYL 10 MG SUPP.RECT RC PRN (16:57)
[2020-12-09] MEDS ORDERED: OXYTOCIN 20 UNITS in 0.9% NS 20 UNIT/1,000 ML INFUS.BAG IV SCH (17:00)
[2020-12-09] MEDS: IBUPROFEN 600 MG TABLET (FP) PO PRN ×2 (17:43→21:37)
[2020-12-09] MEDS ORDERED: IBUPROFEN 600 MG TABLET (FP) PO ONE (17:44)
[2020-12-09] MEDS: FERROUS SO4 325 MG TABLET (FP) PO SCH (21:37)
[2020-12-10] MEDS: IBUPROFEN 600 MG TABLET (FP) PO PRN ×4 (01:44→19:26)
[2020-12-10] MEDS: PRENATAL VITAMINS W/ FOLIC ACID TABLET (FP) PO SCH ×2 (07:55→09:23)
[2020-12-10] MEDS: FERROUS SO4 325 MG TABLET (FP) PO SCH ×3 (07:55→21:13)
[2020-12-10 11:21] LABS: BASO % 0.4 % (0-2.0); EOS % 0.4 % (0-4.5); HEMATOCRIT 35.1 % (32.4-45.2); LYMPH % 11.6 % (8-40); MCH 31.2 pg (25.7-33.7); MCHC 34.3 g/dl (32.0-36.0); MEAN CELL VOLUME 90.9 fl (80-96); MEAN PLT VOLUME 9.3 fl (7.5-11.1); MONO % 6.2 % (3.8-10.2); NEUT % 81.4 % (42.8-82.8); PLATELET COUNT 101 10^3/uL (134-434); RBC 3.86 M/mm3 (3.60-5.2); RDW 13.7 % (11.6-15.6); WHITE BLOOD COUNT 9.2 K/mm3 (4.0-10.0)
[2020-12-10] MEDS ORDERED: SENNOSIDES/DOCUSATE COMBO (SENNA PLUS) TABLET (UD) PO PRN (22:00)
[2020-12-11] MEDS: IBUPROFEN 600 MG TABLET (FP) PO PRN (06:31)
[2020-12-11] MEDS: FERROUS SO4 325 MG TABLET (FP) PO SCH (09:34)
[2020-12-11] MEDS: PRENATAL VITAMINS W/ FOLIC ACID TABLET (FP) PO SCH (09:34)
[2020-12-11 10:49] VITALS: BP 110/72; PULSE 76; TEMP 98.1
== END 2020-12-11 10:45 | disposition home or self-care (01) | DRG 560 ==
LOC: JDEL 02:15 → JLDR 07:00 → J3W 18:05
PROVIDERS: ADMIT Obstetrics & Gynecology; ATTEND Obstetrics & Gynecology
PROC: 0W8NXZZ Division of Female Perineum, External Approach (ICD-10-PCS; principal; 2020-12-09)
PROC: 10E0XZZ Delivery of Products of Conception, External Approach (ICD-10-PCS; 2020-12-09)
DX: O70.0 First degree perineal laceration during delivery (principal); O77.0 Labor and delivery complicated by meconium in amniotic fluid; Z3A.39 39 weeks gestation of pregnancy; Z37.0 Single live birth
CPT/HCPCS: 36415; 36600; 59025; 59409; 80048; 82803; 82962; 85025; 85610; 85730; 86780; 86850; 86900; 86901; C9803; U0003; U0005